=== PATIENT | female | born 1975 | race Caucasian/White ===

== ENCOUNTER 2018-07-19 09:23 | Observation (INO) | payer MEDICAID, OTHER ==
[2018-07-19] MEDS: ONDANSETRON 4 MG INJ IV ×6 (09:55→21:55)
[2018-07-19 09:57] LABS: ADD MAN DIFF? NO
[2018-07-19 09:59] LABS: WHITE BLOOD COUNT 6.4 10^3/ul (4.8-10.8)
[2018-07-19 09:59] LABS: BASOPHILS % 0.3 % (0.0-2.0); EOSINOPHILS % 0.6 % (0.0-7.0); HEMATOCRIT 36.8 % (37.0-47.0); HEMOGLOBIN 11.8 g/dl (12.0-16.0); LYMPHOCYTES # 1.3 10^3/ul (0.8-2.9); LYMPHOCYTES % 20.4 % (15.0-51.0); MEAN CORPUSCULAR HEMOGLOBIN 31.4 pg (29.0-33.0); MEAN CORPUSCULAR HGB CONC 32.1 g/dl (32.0-37.0); MEAN CORPUSCULAR VOLUME 97.9 fl (82.0-101.0); MEAN PLATELET VOLUME 10.2 fl (7.4-10.4); MONOCYTE # 0.5 10^3/ul (0.3-0.9); MONOCYTES % 7.2 % (0.0-11.0); NEUTROPHIL # 4.6 10^3/ul (1.6-7.5); PLATELET COUNT 280 10^3/UL (140-415); RED BLOOD COUNT 3.76 10^6/ul (4.20-5.40); RED CELL DISTRIBUTION WIDTH 13.2 % (11.5-14.5)
[2018-07-19] MEDS: NITROGLYCERIN 2% 1 GM OINT PKT TD (09:59)
[2018-07-19] MEDS ORDERED: NITROGLYCERIN (SL) 0.4 MG TAB SL (10:00)
[2018-07-19 10:20] LABS: ANION GAP 12 (5-13); BLOOD UREA NITROGEN 10 mg/dl (7-20); CALCIUM 9.3 mg/dl (8.4-10.2); CARBON DIOXIDE 22 mmol/L (21-31); CHLORIDE 106 mmol/L (97-110); Estimated GFR > 60 mL/min (>60); GLUCOSE 108 mg/dl (70-220); SODIUM 140 mmol/L (135-144)
[2018-07-19] MEDS: KETOROLAC 30 MG INJ IV (10:24)
[2018-07-19 10:30] LABS: TROPONIN-I < 0.012 ng/ml (0.000-0.120)
[2018-07-19] MEDS: morphine 4 MG/ML VIAL IV ×2 (11:51→21:46)
[2018-07-19] MEDS ORDERED: ACETAMINOPHEN 325 MG TAB PO (12:00)
[2018-07-19] MEDS ORDERED: NACL 0.9% 3 ML SYG IV (14:30)
[2018-07-19] MEDS: morphine 2 MG INJ IV ×2 (15:00→19:17)
[2018-07-19 15:09] LABS: B-TYPE NATRIURETIC PEPTIDE 65 PG/ML (0-125)
[2018-07-19 15:12] LABS: TROPONIN-I < 0.012 ng/ml (0.000-0.120)
[2018-07-19 15:18] LABS: D-DIMER 2162.59 ng/ml (<460)
[2018-07-19] MEDS: HYDROCODONE/APAP (5/325) TAB PO (17:51)
[2018-07-19 23:57] LABS: TROPONIN-I < 0.012 ng/ml (0.000-0.120)
[2018-07-20] MEDS: ONDANSETRON 4 MG INJ IV ×2 (01:43→21:46)
[2018-07-20] MEDS: HYDROCODONE/APAP (5/325) TAB PO (01:52)
[2018-07-20] MEDS: AL HYDROX/MG HYDROX/SIMETH 30 ML CUP PO (02:11)
[2018-07-20] MEDS ORDERED: LEVOTHYROXINE 100 MCG TAB (05:00)
[2018-07-20] MEDS: PANTOPRAZOLE (EC) 40 MG TAB PO (05:15)
[2018-07-20] MEDS: morphine 4 MG/ML VIAL IV ×5 (05:16→21:46)
[2018-07-20] MEDS: LEVOTHYROXINE 100 MCG TAB PO (05:53)
[2018-07-20 06:05] LABS: ADD MAN DIFF? NO
[2018-07-20 06:07] LABS: BASOPHILS % 0.3 % (0.0-2.0); EOSINOPHILS # 0.1 10^3/ul (0.0-0.5); EOSINOPHILS % 0.9 % (0.0-7.0); HEMATOCRIT 41.9 % (37.0-47.0); HEMOGLOBIN 13.7 g/dl (12.0-16.0); LYMPHOCYTES # 1.7 10^3/ul (0.8-2.9); LYMPHOCYTES % 22.1 % (15.0-51.0); MEAN CORPUSCULAR HEMOGLOBIN 31.5 pg (29.0-33.0); MEAN CORPUSCULAR HGB CONC 32.7 g/dl (32.0-37.0); MEAN CORPUSCULAR VOLUME 96.3 fl (82.0-101.0); MEAN PLATELET VOLUME 10.3 fl (7.4-10.4); MONOCYTE # 0.6 10^3/ul (0.3-0.9); MONOCYTES % 7.1 % (0.0-11.0); NEUTROPHIL # 5.3 10^3/ul (1.6-7.5); NEUTROPHILS % 69.1 % (39.0-77.0); PLATELET COUNT 350 10^3/UL (140-415); RED BLOOD COUNT 4.35 10^6/ul (4.20-5.40); RED CELL DISTRIBUTION WIDTH 13.2 % (11.5-14.5)
[2018-07-20 06:07] LABS: WHITE BLOOD COUNT 7.7 10^3/ul (4.8-10.8)
[2018-07-20 06:47] LABS: ALANINE AMINOTRANSFERASE 22 IU/L (13-69); ALBUMIN 4.2 g/dl (3.3-4.9); ALBUMIN/GLOBULIN RATIO 1.31; ALKALINE PHOSPHATASE 58 IU/L (42-121); ANION GAP 15 (5-13); ASPARTATE AMINO TRANSFERASE 15 IU/L (15-46); BILIRUBIN,INDIRECT 0.1 mg/dl (0-1.1); BILIRUBIN,TOTAL 0.1 mg/dl (0.2-1.3); BLOOD UREA NITROGEN 13 mg/dl (7-20); CARBON DIOXIDE 26 mmol/L (21-31); CHLORIDE 100 mmol/L (97-110); CHOL/HDL RATIO 5.3 RATIO; CHOLESTEROL 280 mg/dl (100-200); CREATININE 0.66 mg/dl (0.44-1.00); Estimated GFR > 60 mL/min (>60); GLUCOSE 103 mg/dl (70-220); HDL CHOLESTEROL 52 mg/dl (34-88); LDL CHOLESTEROL,CALCULATED 207 mg/dl; MAGNESIUM 2.1 mg/dl (1.7-2.5); PHOSPHORUS 3.3 mg/dl (2.5-4.9); POTASSIUM 4.7 mmol/L (3.5-5.1); SODIUM 141 mmol/L (135-144); TOTAL PROTEIN 7.4 g/dl (6.1-8.1); TRIGLYCERIDES 107 mg/dl (0-149)
[2018-07-20 06:49] LABS: CK-MB < 0.22 ng/ml (0.0-2.4); TROPONIN-I < 0.012 ng/ml (0.000-0.120)
[2018-07-20 06:51] LABS: CREATINE KINASE 23 IU/L (23-200)
[2018-07-20 07:43] LABS: HEMOGLOBIN A1C 5.3 % (0-5.9)
[2018-07-20] MEDS: METOPROLOL (XL) 50 MG TAB PO (08:39)
[2018-07-20] MEDS: ENOXAPARIN 40 MG/0.4 ML SYG SC (08:42)
[2018-07-20] MEDS: DIPHENHYDRAMINE 50 MG CAP PO (15:21)
[2018-07-20] MEDS: ATORVASTATIN 80 MG TAB PO (21:45)
[2018-07-21] MEDS: morphine 4 MG/ML VIAL IV ×2 (03:27→09:03)
[2018-07-21] MEDS: ONDANSETRON 4 MG INJ IV ×2 (03:27→09:01)
[2018-07-21] MEDS: LEVOTHYROXINE 100 MCG TAB PO (05:44)
[2018-07-21] MEDS: PANTOPRAZOLE (EC) 40 MG TAB PO (05:44)
[2018-07-21] MEDS: HYDROCODONE/APAP (5/325) TAB PO (05:44)
[2018-07-21] MEDS: METOPROLOL (XL) 50 MG TAB PO (08:43)
[2018-07-21] MEDS: ENOXAPARIN 40 MG/0.4 ML SYG SC (08:44)
== END 2018-07-21 12:59 | disposition home or self-care (01) ==
LOC: E/R 09:23 → 6WM 11:56
DX: R07.89 Other chest pain (principal); I11.0 Hypertensive heart disease with heart failure; I50.9 Heart failure, unspecified; Z72.0 Tobacco use
CPT/HCPCS: 71045; 80048; 80053; 80061; 81025; 82550; 82553; 83036; 83735; 83880; 84100; 84443; 84484; 85025; 85378; 93005; 93306; 96374; 96375; 99285-25; G0378